=== PATIENT | female | born 1950 | race Caucasian/White ===

== ENCOUNTER 2023-05-12 12:51 | Outpatient (CLI) | payer OTHER ==
[~2023-05-12 12:51] MED LIST: ALENDRONATE SOD35 MG; ASPIR 8181 MG; FLOVENT 220MCG7.9 GM; HYDROCHLOROTH12.5 M1; LIPITOR40 MG; NEURONTIN600 MG; OXYBUTYNIN CHLOR5 MG; SYNTHROID50 MCG; TOPROL XL25 M1
== END 2023-05-12 12:59 | disposition home or self-care (01) ==
LOC: MRI 12:51
PROVIDERS: ATTEND Family Medicine Geriatric Medicine
DX: M54.59 Other low back pain (principal)
CPT/HCPCS: 72148

== ENCOUNTER 2023-06-01 10:00 | Outpatient (CLI) | payer OTHER | END 2023-06-01 10:08 | disposition home or self-care (01) | LOC: TOM 10:00 | DX: Z12.11 Encounter for screening for malignant neoplasm of colon (principal); K56.609 Unspecified intestinal obstruction, unspecified as to partial versus complete obstruction ==